=== PATIENT | male | born 1990 | race Caucasian/White ===

== ENCOUNTER 2019-02-15 04:15 | Emergency (ER) | payer BC, OTHER ==
[2019-02-15] MEDS ORDERED: Sodium Chloride 0.9% 1,000 ML IV ONE (04:20)
[2019-02-15] MEDS ORDERED: Ketorolac 30 MG/ML SDV IVPUSH ONE (04:23)
[2019-02-15] MEDS ORDERED: Ondansetron 4 MG/2 ML SDV IVPUSH ONE (04:23)
[2019-02-15] MEDS ORDERED: Tamsulosin 0.4 MG Cap.ER PO ONE (04:23)
--- NOTE | 2019-02-15 04:25 | EDM.PDOC ---
ED HPI GENERAL MEDICAL PROBLEM - General Chief Complaint: Abdominal Pain Stated Complaint: RIGHT SIDE ABDOMINAL PAIN Time Seen by Provider: 02/15/19 04:23 - History of Present Illness INITIAL COMMENTS - FREE TEXT/NARRATIVE: HISTORY AND PHYSICAL: History of present illness: Patient is a 28-year-old white male presents with acute right-sided abdominal pain that started approximately 2:30 AM with associated nausea denies vomiting he denies trauma denies fever chills eyes history of urolithiasis. Review of systems: As per history of present illness and below otherwise all systems reviewed and negative. Past medical history: As per history of present illness and as reviewed below otherwise noncontributory. Surgical history: As per history of present illness and as reviewed below otherwise noncontributory. Social history: No reported history of drug or alcohol abuse. Family history: As per history of present illness and as reviewed below otherwise noncontributory. Physical exam: HEENT: Atraumatic, normocephalic, pupils reactive, negative for conjunctival pallor or scleral icterus, mucous membranes moist, throat clear, neck supple, nontender, trachea midline. Lungs: Clear to auscultation, breath sounds equal bilaterally, chest nontender. Heart: S1S2, regular, negative for clicks, rubs, or JVD. Abdomen: Soft, nondistended, nonlocalized right-sided tenderness. Negative for masses or hepatosplenomegaly. Right-sided costovertebral tenderness. Pelvis: Stable nontender. Genitourinary: Deferred. Rectal: Deferred. Extremities: Atraumatic, negative for cords or calf pain. Neurovascular unremarkable. Neuro: Awake, alert, oriented. Cranial nerves II through XII unremarkable. Cerebellum unremarkable. Motor and sensory unremarkable throughout. Exam nonfocal. Diagnostics: CBC CMP lipase UA UDS chest x-ray CT abdomen and pelvis Therapeutics: Saline 1 L bolus and Toradol 30 mg IV Zofran 4 mg IV Flomax 0.4 mg by mouth Impression: #1 right-sided abdominal/flank pain Definitive disposition and diagnosis as appropriate pending reevaluation and review of above. - Related Data Allergies Allergy/AdvReac Type Severity Reaction Status Date / Time No Known Allergies Allergy Verified 02/15/19 04:26 Home Meds: Home Meds . [No Known Home Meds] 02/15/19 [History] ED ROS GENERAL - Review of Systems Review Of Systems: ROS reveals no pertinent complaints other than HPI. ED EXAM, GENERAL - Physical Exam Exam: See Below (See dictation) Course - Vital Signs Last Recorded V/S: Last Vital Signs Temp 35.5 C 02/15/19 04:15 Pulse 77 02/15/19 05:05 Resp 18 02/15/19 05:05 BP 160/110 H 02/15/19 05:05 Pulse Ox 94 L 02/15/19 04:15 - Orders/Labs/Meds Labs: Laboratory Tests 02/15/19 02/15/19 02/15/19 Range/Units 04:30 04:30 04:30 WBC 9.62 (4.0-11.0) K/uL RBC 5.85 (4.50-5.90) M/uL Hgb 17.4 H (13.0-17.0) g/dL Hct 49.9 (38.0-50.0) % MCV 85.3 (80.0-98.0) fL MCH 29.7 (27.0-32.0) pg MCHC 34.9 (31.0-37.0) g/dL RDW Std Deviation 41.7 (28.0-62.0) fl RDW Coeff of Belkis 14 (11.0-15.0) % Plt Count 299 (150-400) K/uL MPV 8.80 (7.40-12.00) fL Neut % (Auto) 68.1 (48.0-80.0) % Lymph % (Auto) 23.0 (16.0-40.0) % Grant % (Auto) 7.7 (0.0-15.0) % Eos % (Auto) 1.0 (0.0-7.0) % Baso % (Auto) 0.2 (0.0-1.5) % Neut # (Auto) 6.6 H (1.4-5.7) K/uL Lymph # (Auto) 2.2 (0.6-2.4) K/uL Grant # (Auto) 0.7 (0.0-0.8) K/uL Eos # (Auto) 0.1 (0.0-0.7) K/uL Baso # (Auto) 0.0 (0.0-0.1) K/uL Nucleated RBC % 0.0 /100WBC Nucleated RBCs # 0 K/uL INR Sodium (136-148) mmol/L Potassium (3.5-5.1) mmol/L Chloride (98-107) mmol/L Carbon Dioxide (21.0-32.0) mmol/L BUN (7.0-18.0) mg/dL Creatinine (0.8-1.3) mg/dL Est Cr Clr Drug Dosing mL/min Estimated GFR (MDRD) ml/min Glucose (74-106) mg/dL Calcium (8.5-10.1) mg/dL Total Bilirubin (0.2-1.0) mg/dL AST (15-37) IU/L ALT (14-63) IU/L Alkaline Phosphatase (46-116) U/L Total Protein (6.4-8.2) g/dL Albumin (3.4-5.0) g/dL Globulin (2.6-4.0) g/dL Albumin/Globulin Ratio (0.9-1.6) Lipase (73-393) U/L Urine Color YELLOW Urine Appearance CLEAR Urine pH 5.5 (5.0-8.0) Ur Specific [place] >= 1.030 (1.001-1.035) Urine Protein NEGATIVE (NEGATIVE) mg/dL Urine Glucose (UA) NEGATIVE (NEGATIVE) mg/dL Urine Ketones NEGATIVE (NEGATIVE) mg/dL Urine Occult Blood LARGE H (NEGATIVE) Urine Nitrite NEGATIVE (NEGATIVE) Urine Bilirubin SMALL H (NEGATIVE) Urine Ictotest NEGATIVE Urine Urobilinogen 0.2 (<2.0) EU/dL Ur Leukocyte Esterase NEGATIVE (NEGATIVE) Urine RBC 3-5 (0-2/HPF) Urine WBC 0-1 (0-5/HPF) Ur Epithelial Cells RARE (NONE-FEW) Urine Bacteria RARE (NEGATIVE) Urine Opiates Screen NEGATIVE (NEGATIVE) Ur Oxycodone Screen NEGATIVE (NEGATIVE) Urine Methadone Screen NEGATIVE (NEGATIVE) Ur Barbiturates Screen NEGATIVE (NEGATIVE) Ur Phencyclidine Scrn NEGATIVE (NEGATIVE) Ur Amphetamine Screen NEGATIVE (NEGATIVE) U Methamphetamines Scrn NEGATIVE (NEGATIVE) U Benzodiazepines Scrn NEGATIVE (NEGATIVE) U Cocaine Metab Screen NEGATIVE (NEGATIVE) U Marijuana (THC) Screen NEGATIVE (NEGATIVE) 02/15/19 02/15/19 Range/Units 04:30 04:30 WBC (4.0-11.0) K/uL RBC (4.50-5.90) M/uL Hgb (13.0-17.0) g/dL Hct (38.0-50.0) % MCV (80.0-98.0) fL MCH (27.0-32.0) pg MCHC (31.0-37.0) g/dL RDW Std Deviation (28.0-62.0) fl RDW Coeff of Belkis (11.0-15.0) % Plt Count (150-400) K/uL MPV (7.40-12.00) fL Neut % (Auto) (48.0-80.0) % Lymph % (Auto) (16.0-40.0) % Grant % (Auto) (0.0-15.0) % Eos % (Auto) (0.0-7.0) % Baso % (Auto) (0.0-1.5) % Neut # (Auto) (1.4-5.7) K/uL Lymph # (Auto) (0.6-2.4) K/uL Grant # (Auto) (0.0-0.8) K/uL Eos # (Auto) (0.0-0.7) K/uL Baso # (Auto) (0.0-0.1) K/uL Nucleated RBC % /100WBC Nucleated RBCs # K/uL INR 1.04 Sodium 140 (136-148) mmol/L Potassium 3.9 (3.5-5.1) mmol/L Chloride 104 (98-107) mmol/L Carbon Dioxide 23.8 (21.0-32.0) mmol/L BUN 16 (7.0-18.0) mg/dL Creatinine 1.0 (0.8-1.3) mg/dL Est Cr Clr Drug Dosing 120.71 mL/min Estimated GFR (MDRD) > 60.0 ml/min Glucose 114 H (74-106) mg/dL Calcium 8.9 (8.5-10.1) mg/dL Total Bilirubin 1.0 (0.2-1.0) mg/dL AST 37 (15-37) IU/L ALT 148 H (14-63) IU/L Alkaline Phosphatase 75 (46-116) U/L Total Protein 7.3 (6.4-8.2) g/dL Albumin 4.3 (3.4-5.0) g/dL Globulin 3.0 (2.6-4.0) g/dL Albumin/Globulin Ratio 1.4 (0.9-1.6) Lipase 108 (73-393) U/L Urine Color Urine Appearance Urine pH (5.0-8.0) Ur Specific [place] (1.001-1.035) Urine Protein (NEGATIVE) mg/dL Urine Glucose (UA) (NEGATIVE) mg/dL Urine Ketones (NEGATIVE) mg/dL Urine Occult Blood (NEGATIVE) Urine Nitrite (NEGATIVE) Urine Bilirubin (NEGATIVE) Urine Ictotest Urine Urobilinogen (<2.0) EU/dL Ur Leukocyte Esterase (NEGATIVE) Urine RBC (0-2/HPF) Urine WBC (0-5/HPF) Ur Epithelial Cells (NONE-FEW) Urine Bacteria (NEGATIVE) Urine Opiates Screen (NEGATIVE) Ur Oxycodone Screen (NEGATIVE) Urine Methadone Screen (NEGATIVE) Ur Barbiturates Screen (NEGATIVE) Ur Phencyclidine Scrn (NEGATIVE) Ur Amphetamine Screen (NEGATIVE) U Methamphetamines Scrn (NEGATIVE) U Benzodiazepines Scrn (NEGATIVE) U Cocaine Metab Screen (NEGATIVE) U Marijuana (THC) Screen (NEGATIVE) Meds: Medications Discontinued Medications Generic Name Dose Route Start Last Admin Trade Name Luis PRN Reason Stop Dose Admin Hydromorphone HCl 1 mg 02/15/19 05:08 02/15/19 05:13 Dilaudid IVPUSH 02/15/19 05:09 1 mg ONETIME ONE Administration Sodium Chloride 1,000 mls @ 999 mls/hr 02/15/19 04:20 02/15/19 04:27 Normal Saline IV 02/15/19 05:20 999 mls/hr STAT ONE Administration Ketorolac Tromethamine 30 mg 02/15/19 04:23 02/15/19 04:27 Toradol IVPUSH 02/15/19 04:24 30 mg ONETIME ONE Administration Ondansetron HCl 4 mg 02/15/19 04:23 02/15/19 04:27 Zofran IVPUSH 02/15/19 04:24 4 mg ONETIME ONE Administration Tamsulosin HCl 0.4 mg 02/15/19 04:23 02/15/19 04:27 Flomax PO 02/15/19 04:24 0.4 mg ONETIME ONE Administration Departure - Departure Time of Disposition: 05:33 Disposition: Home, Self-Care 01 Condition: Good Clinical Impression: Ureterolithiasis - Discharge Information Referrals: PCP,None [Primary Care Provider] - Forms: ED Department Discharge Additional Instructions: The following information is given to patients seen in the emergency department who are being discharged to home. This information is to outline your options for follow-up care. We provide all patients seen in our emergency department with a follow-up referral. The need for follow-up, as well as the timing and circumstances, are variable depending upon the specifics of your emergency department visit. If you don't have a primary care physician on staff, we will provide you with a referral. We always advise you to contact your personal physician following an emergency department visit to inform them of the circumstance of the visit and for follow-up with them and/or the need for any referrals to a consulting specialist. The emergency department will also refer you to a specialist when appropriate. This referral assures that you have the opportunity for followup care with a specialist. All of these measure are taken in an effort to provide you with optimal care, which includes your followup. Under all circumstances we always encourage you to contact your private physician who remains a resource for coordinating your care. When calling for followup care, please make the office aware that this follow-up is from your recent emergency room visit. If for any reason you are refused follow-up, please contact the [facility] emergency department at and asked to speak to the emergency department charge nurse. [facility] - Urology [address] [place] [id number] [address] Zofrjeromy Flomax as prescribed call schedule appointment above push fluids return as needed as discussed
[2019-02-15 04:56] LABS: BLOOD UREA NITROGEN,BUN 16 mg/dL (7.0-18.0); CARBON DIOXIDE,CO2 23.8 mmol/L (21.0-32.0); CHLORIDE,CL 104 mmol/L (98-107); GLUCOSE RANDOM 114 mg/dL (74-106); LIPASE 108 U/L (73-393); POTASSIUM,K 3.9 mmol/L (3.5-5.1); SODIUM,NA 140 mmol/L (136-148)
[2019-02-15] MEDS ORDERED: HYDROmorphone 1 MG/ML Syringe IVPUSH ONE (05:08)
--- NOTE | 2019-02-15 05:21 | CR ---
INDICATION: Chest and right flank pain TECHNIQUE: Chest 1 view COMPARISON: None FINDINGS: Cardiovascular and mediastinum: Heart size and vasculature are normal in caliber and appearance. Lungs and pleural spaces: Lungs are clear. No sign of infiltrate or mass. No sign of pleural effusion. No pneumothorax. Bones and soft tissues: No significant findings. IMPRESSION: No acute or significant findings. Dictated by Maycol Vincent MD @ Feb 15 2019 5:18AM Signed by Dr. Maycol Vincent @ Feb 15 2019 5:19AM
--- NOTE | 2019-02-15 05:25 | CT ---
INDICATION: Chest and right flank pain TECHNIQUE: CT abdomen and pelvis without contrast. COMPARISON: None. FINDINGS: Lower chest: Unremarkable. Liver: Mildly decreased density of the liver diffusely consistent with fatty infiltration. Gallbladder and bile ducts: No stones or inflammation. No biliary dilatation. Pancreas: Unremarkable. No mass or inflammation. Spleen: Normal in size. No masses. Adrenal glands: Normal in size. No nodules. Kidneys: Left kidney is normal in contour without evidence of hydronephrosis. On the right there is mild hydronephrosis which extends to the level of the distal right ureter where there is an obstructing 2 millimeter stone. GI tract: Unremarkable. Normal in caliber. No sign of mass or inflammation. Normal appendix. Vasculature: Unremarkable. Pelvis: Bladder unremarkable. Mild prostatic calcification. Bones: Unremarkable for age. IMPRESSION: 1. Nephrolithiasis with mild right hydronephrosis and a distal right ureteral stone measuring 2 millimeters. 2. Fatty infiltration of the liver. Please note that all CT scans at this facility use dose modulation, iterative reconstruction, and/or weight-based dosing when appropriate to reduce radiation dose to as low as reasonably achievable. Dictated by Maycol Vincent MD @ Feb 15 2019 5:19AM Signed by Dr. Maycol Vincent @ Feb 15 2019 5:23AM
== END 2019-02-15 05:48 | disposition home or self-care (01) ==
LOC: MW.ED 04:15
DX: N13.2 Hydronephrosis with renal and ureteral calculous obstruction (principal)
CPT/HCPCS: 36415; 71045; 74176; 80053; 80305; 81001; 83690; 85025; 85610; 96361; 96374; 96375; 99284; A9270; J1170; J1885; J2405; J7040

== ENCOUNTER 2020-08-06 11:40 | Emergency (ER) | payer BC ==
--- NOTE | 2020-08-06 11:42 | EDM.PDOC ---
ED HPI GENERAL MEDICAL PROBLEM - General Stated Complaint: RT SIDE ABD Time Seen by Provider: 08/06/20 11:41 Source of Information: Reports: Patient History Limitations: Reports: No Limitations - History of Present Illness INITIAL COMMENTS - FREE TEXT/NARRATIVE: HISTORY AND PHYSICAL: History of present illness: Patient is a 29-year-old male who presents to the emergency room with complaints of right lower quadrant/side pain that started this morning. He states over the past 2 days he has noticed some urinary frequency and dark urine over the past 2 days. He became worried that he may have a kidney stone that is "moving". Today he developed right lower quadrant/side pain along with nausea. Patient denies any fever, chills, headache, change in vision, syncope or near syncope. Denies any chest pain, back pain, shortness of breath or cough. Denies any vomiting, diarrhea, constipation or dysuria. Has not noted any blood in urine or stool. Denies any testicular pain, redness or swelling. No concerns for STIs. Review of systems: As per history of present illness and below otherwise all systems reviewed and negative. Past medical history: As per history of present illness and as reviewed below otherwise noncontributory. Surgical history: As per history of present illness and as reviewed below otherwise noncontributory. Social history: See social history for further information Family history: As per history of present illness and as reviewed below otherwise noncontributory. Physical exam: General: Well developed and well nourished 29-year-old male. Alert and orientated x 3. Nontoxic in appearance and in no acute distress. Vital signs are stable and have been reviewed by me. Nursing notes were reviewed. HEENT: Atraumatic, normocephalic, pupils equal and reactive bilaterally, negative for conjunctival pallor or scleral icterus, mucous membranes moist, trachea midline. No drooling or trismus noted. No meningeal signs. No hot potato voice noted. Lungs: Clear to auscultation bilaterally. No wheezes, rales, or rhonchi. Chest nontender. Normal work of breathing, no accessory muscles used. Heart: S1S2, regular rate and rhythm without overt murmur, gallops, or rubs. No JVD. No peripheral edema Abdomen: Soft, nondistended, no localized tenderness. Normoactive bowel sounds. Negative for masses or costovertebral tenderness. Pelvis: Stable nontender. Genitourinary/Rectal: Deferred. Skin: Intact, warm, dry. No lesions or rashes noted. Hematologic: No petechiae or purpra. Mucosa appropriate color and normal nail bed color and refill. Extremities: Atraumatic, moves all extremities per self without difficulty or deficits, negative for cords or calf pain. Neurovascular unremarkable. Neuro: Awake, alert, oriented. Cranial nerves II through XII unremarkable. Ce rebellum unremarkable. Motor and sensory unremarkable throughout. Exam nonfocal. Psychiatric: Mood and affect are appropriate. Normal thought process. Answering questions appropriately. Notes: *This patient was seen and evaluated during the 2019 SARS-CoV-2 novel coronavirus pandemic period. Community viral transmission is ongoing at time of this encounter and the emergency department is operating under pandemic response procedures. Lab work is unremarkable with the exception of RBCs/blood in his urine. Will obtain a CT scan without contrast for further evaluation. CT shows a 3 mm distal right ureteral stone with mild hydronephrosis. I have talked with the patient about today's findings, in addition to providing specific details for plan of care. Encouraged to follow up with urology. Reassessment at the time of disposition demonstrates that the patient is in no acute distress. The patient is stable for discharge, counseling was provided and we discussed in great detail signs and symptoms that would prompt them to return to the Emergency Department. Medication, follow up and supportive care measures were reviewed and discussed. Voices understanding and is agreeable to plan of care. Denies any further questions or concerns at this time. Diagnostics: CBC, CMP, UA, CT abdomen and pelvis Therapeutics: IV fluid, Zofran, morphine Prescription: Flomax, Beaumont Impression: Transaminitis Kidney Stone, Right Plan: 1. You have 3 mm right ureteral stone. Increase your fluids, and take the flomax as directed. Your liver enzymes are elevated; please have this re- evaluated by your primary care provider in the next few weeks. 2. You can alternate Tylenol and ibuprofen as needed for pain and fever management. Beaumont for moderate to severe pain. This medication may cuase drow siness, so please do not take while driving or needing to be functioning outside the house. 3. We encourage you to follow up with your primary care provider and/or Urology in the next week for re-evaluation and further care/management. 4. If your symptoms should worsen, new symptoms develop or any of the signs and symptoms we discussed should arise please return to the emergency room or call 911 (if needed). Definitive disposition and diagnosis as appropriate pending reevaluation and review of above. rLQ Pain Score (Numeric/FACES): 7 - Related Data Allergies Allergy/AdvReac Type Severity Reaction Status Date / Time No Known Allergies Allergy Verified 08/06/20 12:11 Home Meds: Home Meds Acetaminophen/HYDROcodone [Beaumont 325-5 MG] 1 - 2 tab PO Q4H #20 tablet 08/06/20 [Rx] Tamsulosin [Tamsulosin 24 Hr] 0.4 mg PO DAILY 7 Days #7 cap.er 08/06/20 [Rx] Past Medical History - Past Health History Medical/Surgical History: Denies Medical/Surgical History Social & Family History - Family History Family Medical History: No Pertinent Family History ED ROS GENERAL - Review of Systems Review Of Systems: Comprehensive ROS is negative, except as noted in HPI. ED EXAM, GI/ABD - Physical Exam Exam: See Below (See dictation) Course - Vital Signs Last Recorded V/S: Last Vital Signs Temp 96.9 F 08/06/20 12:15 Pulse 80 08/06/20 12:15 Resp 16 08/06/20 12:15 BP 153/110 H 08/06/20 12:15 Pulse Ox 95 08/06/20 12:15 - Orders/Labs/Meds Labs: Laboratory Tests 08/06/20 08/06/20 08/06/20 Range/Units 11:59 12:05 12:14 WBC 8.67 (4.0-11.0) K/uL RBC 5.97 H (4.50-5.90) M/uL Hgb 18.2 H (13.0-17.0) g/dL Hct 52.5 H (38.0-50.0) % MCV 87.9 (80.0-98.0) fL MCH 30.5 (27.0-32.0) pg MCHC 34.7 (31.0-37.0) g/dL RDW Std Deviation 40.7 (28.0-62.0) fl RDW Coeff of Belkis 13 (11.0-15.0) % Plt Count 341 (150-400) K/uL MPV 9.10 (7.40-12.00) fL Neut % (Auto) 61.2 (48.0-80.0) % Lymph % (Auto) 28.3 (16.0-40.0) % [place] % (Auto) 8.7 (0.0-15.0) % Eos % (Auto) 1.6 (0.0-7.0) % Baso % (Auto) 0.2 (0.0-1.5) % Neut # (Auto) 5.3 (1.4-5.7) K/uL Lymph # (Auto) 2.5 H (0.6-2.4) K/uL Sherman # (Auto) 0.8 (0.0-0.8) K/uL Eos # (Auto) 0.1 (0.0-0.7) K/uL Baso # (Auto) 0.0 (0.0-0.1) K/uL Nucleated RBC % 0.0 /100WBC Nucleated RBCs # 0 K/uL Sodium 140 (136-148) mmol/L Potassium 3.9 (3.5-5.1) mmol/L Chloride 104 (98-107) mmol/L Carbon Dioxide 24.3 (21.0-32.0) mmol/L BUN 14 (7.0-18.0) mg/dL Creatinine 1.1 (0.8-1.3) mg/dL Est Cr Clr Drug Dosing 108.76 mL/min Estimated GFR (MDRD) > 60.0 ml/min Glucose 101 (74-106) mg/dL Calcium 8.8 (8.5-10.1) mg/dL Total Bilirubin 0.7 (0.2-1.0) mg/dL AST 48 H (15-37) IU/L ALT 150 H (14-63) IU/L Alkaline Phosphatase 74 (46-116) U/L Total Protein 7.8 (6.4-8.2) g/dL Albumin 4.4 (3.4-5.0) g/dL Globulin 3.4 (2.6-4.0) g/dL Albumin/Globulin Ratio 1.3 (0.9-1.6) Urine Color YELLOW Urine Appearance HAZY Urine pH 6.0 (5.0-8.0) Ur Specific [place] >= 1.030 (1.001-1.035) Urine Protein NEGATIVE (NEGATIVE) mg/dL Urine Glucose (UA) NEGATIVE (NEGATIVE) mg/dL Urine Ketones NEGATIVE (NEGATIVE) mg/dL Urine Occult Blood LARGE H (NEGATIVE) Urine Nitrite NEGATIVE (NEGATIVE) Urine Bilirubin NEGATIVE (NEGATIVE) Urine Urobilinogen 1.0 (<2.0) EU/dL Ur Leukocyte Esterase NEGATIVE (NEGATIVE) Urine RBC 40-50 (0-2/HPF) Urine WBC 0-1 (0-5/HPF) Ur Epithelial Cells FEW (NONE-FEW) Urine Bacteria FEW (NEGATIVE) Urine Mucus MODERATE (NONE-MOD) Urine Sperm FEW (NEGATIVE) Meds: Medications Discontinued Medications Generic Name Dose Route Start Last Admin Trade Name Freq PRN Reason Stop Dose Admin Sodium Chloride 1,000 mls @ 999 mls/hr 08/06/20 11:59 08/06/20 12:25 Normal Saline IV 08/06/20 12:59 999 mls/hr STAT ONE Administration Morphine Sulfate 4 mg 08/06/20 11:59 08/06/20 12:25 Morphine IVPUSH 08/06/20 12:00 4 mg ONETIME ONE Administration Ondansetron HCl 4 mg 08/06/20 11:59 08/06/20 12:25 Zofran IVPUSH 08/06/20 12:00 4 mg ONETIME ONE Administration Tamsulosin HCl 0.4 mg 08/06/20 12:41 08/06/20 13:16 Flomax PO 08/06/20 12:42 0.4 mg ONETIME ONE Administration Departure - Departure Time of Disposition: 13:39 Disposition: Home, Self-Care 01 Clinical Impression: Transaminitis, Kidney stone on right side - Discharge Information Prescriptions: Tamsulosin [Tamsulosin 24 Hr] 0.4 mg PO DAILY 7 Days #7 cap.er Acetaminophen/HYDROcodone [Beaumont 325-5 MG] 1 - 2 tab PO Q4H #20 tablet Instructions: Kidney Stones, [id number] Referrals: PCP,None [Primary Care Provider] - Additional Instructions: The following information is given to patients seen in the emergency department who are being discharged to home. This information is to outline your options for follow-up care. We provide all patients seen in our emergency department with a follow-up referral. The need for follow-up, as well as the timing and circumstances, are variable depending upon the specifics of your emergency department visit. If you don't have a primary care physician on staff, we will provide you with a referral. We always advise you to contact your personal physician following an emergency department visit to inform them of the circumstance of the visit and for follow-up with them and/or the need for any referrals to a consulting specialist. The emergency department will also refer you to a specialist when appropriate. This referral assures that you have the opportunity for follow-up care with a specialist. All of these measure are taken in an effort to provide you with optimal care, which includes your follow-up. Under all circumstances we always encourage you to contact your private physician who remains a resource for coordinating your care. When calling for follow-up care, please make the office aware that this follow-up is from your recent emergency room visit. If for any reason you are refused follow-up, please contact the [facility] Emergency Department at and asked to speak to the emergency department charge nurse. [facility] [address] [place] [id number] [place] [address] Thank you for choosing the [facility] emergency department in [place] for your medical needs today. It was a pleasure caring for you. Today you were seen in the emergency department for kidney stone. 1. You have 3 mm right kidney stone. Increase your fluids, and take the flomax as directed. Your liver enzymes are elevated; please have this re-evaluated by your primary care provider in the next few weeks. 2. You can alternate Tylenol and ibuprofen as needed for pain and fever management. [place]um[place] for moderate to severe pain. This medication may cuase drowsiness, so please do not take while driving or needing to be functioning outside the house. 3. We encourage you to follow up with your primary care provider and/or Urology in the next week for re-evaluation and further care/management. 4. If your symptoms should worsen, new symptoms develop or any of the signs and symptoms we discussed should arise please return to the emergency room or call 911 (if needed). Sepsis Event Note (ED) - Focused Exam Vital Signs: Vital Signs Temp Pulse Resp BP Pulse Ox 08/06/20 12:15 96.9 F 80 16 153/110 H 95
[2020-08-06] MEDS ORDERED: Morphine 4 MG/ML Syringe IVPUSH ONE (11:59)
[2020-08-06] MEDS ORDERED: Sodium Chloride 0.9% 1,000 ML IV ONE (11:59)
[2020-08-06] MEDS ORDERED: Ondansetron 4 MG/2 ML SDV IVPUSH ONE (11:59)
[2020-08-06] MEDS ORDERED: Tamsulosin 0.4 MG Cap.ER PO ONE (12:41)
[2020-08-06 12:52] LABS: BLOOD UREA NITROGEN,BUN 14 mg/dL (7.0-18.0); CARBON DIOXIDE,CO2 24.3 mmol/L (21.0-32.0); CHLORIDE,CL 104 mmol/L (98-107); GLUCOSE RANDOM 101 mg/dL (74-106); POTASSIUM,K 3.9 mmol/L (3.5-5.1); SODIUM,NA 140 mmol/L (136-148)
--- NOTE | 2020-08-06 13:28 | CT ---
HISTORY: Right flank pain. COMPARISON: 02/15/2019. TECHNIQUE: Noncontrast axial images were obtained through the abdomen and pelvis. FINDINGS: 3 mm stone in the distal right ureter, near to the UVJ. There is mild right hydronephrosis. The left kidney is normal. The liver, spleen, pancreas, gallbladder and adrenal glands are normal on this noncontrast study. No lymph adenopathy or ascites. The appendix is normal. The bowel is decompressed. No evidence for bowel obstruction. The bones within normal. The lung bases are clear. IMPRESSION: 3 mm distal right ureteral stone with mild hydronephrosis. Please note that all CT scans at this facility use dose modulation, iterative reconstruction, and/or weight-based dosing when appropriate to reduce radiation dose to as low as reasonably achievable. Dictated by Pili Dunne MD @ Aug 06 2020 1:24PM Signed by Dr. Pili Dunne @ Aug 06 2020 1:27PM
[2020-08-06] MEDS ORDERED: Morphine 2 MG/ML SYRINGE IVPUSH ONE (13:43)
== END 2020-08-06 14:30 | disposition home or self-care (01) ==
LOC: MW.ED 11:40
DX: N13.2 Hydronephrosis with renal and ureteral calculous obstruction (principal); R74.01 Elevation of levels of liver transaminase levels; Z79.899 Other long term (current) drug therapy
CPT/HCPCS: 74176; 80053; 81001; 85025; 96374; 96375; 96376; 99284; A9270; J2270; J2405; J7030; 99283

== ENCOUNTER 2021-10-22 09:52 | Emergency (ER) | payer BC ==
[2021-10-22] MEDS ORDERED: Ondansetron 4 MG/2 ML SDV IVPUSH ONE (10:24)
[2021-10-22] MEDS ORDERED: Sodium Chloride 0.9% 10 ML Syringe FLUSH PRN (10:24)
[2021-10-22] MEDS ORDERED: Sodium Chloride 0.9% 2.5 ML Syringe FLUSH PRN (10:24)
[2021-10-22] MEDS ORDERED: Famotidine 20 MG/2 ML SDV IVPUSH ONE (10:24)
[2021-10-22] MEDS ORDERED: Sodium Chloride 0.9% 1,000 ML IV ONE (10:24)
[2021-10-22 10:42] LABS: BLOOD UREA NITROGEN,BUN 13 mg/dL (7.0-18.0); CARBON DIOXIDE,CO2 23.4 mmol/L (21.0-32.0); CHLORIDE,CL 100 mmol/L (98-107); GLUCOSE RANDOM 101 mg/dL (74-106); POTASSIUM,K 3.4 mmol/L (3.5-5.1); SODIUM,NA 136 mmol/L (136-148)
[2021-10-22 11:47] LABS: CORONAVIRUS COVID-19 NAA NEGATIVE (NEGATIVE); INFLUENZA A NAA NEGATIVE (NEGATIVE); INFLUENZA B NAA NEGATIVE (NEGATIVE)
[2021-10-22] MEDS ORDERED: Alum Hydro/Mag Hydro/Simeth XS 15 ML, Lidocaine 2% 5 ML PO ONE ×2 (11:53)
[2021-10-22] MEDS ORDERED: Iopamidol 755 MG/ML 500 ML Multipack Bottle IVPUSH ONE (17:28)
== END 2021-10-22 12:44 | disposition home or self-care (01) ==
LOC: MW.ED 09:52
DX: K29.00 Acute gastritis without bleeding (principal); Z79.899 Other long term (current) drug therapy; Z20.822 Contact with and (suspected) exposure to COVID-19
CPT/HCPCS: 0240U; 36415; 74177; 80053; 81003; 83735; 85025; 85610; 96374; 96375; 99284; A9270; J2405; J3490; J7030; Q9967; 99282